=== PATIENT | female | born 1990 | race Caucasian/White ===

== ENCOUNTER 2020-09-16 17:12 | Emergency (ER) | payer MEDICAID, OTHER, SELFPAY ==
[2020-09-16 17:38] VITALS: BP 143/79; PULSE 85; RESP 18; TEMP 37.3; O2SAT 99; BMI 21.9
[2020-09-16 18:12] LABS: MANUAL DIFF FLAG NO
[2020-09-16 18:15] LABS: Glucose Urine UA NEG (NEG); Leukocyte Esterase Urine TRACE (NEG); Nitrite Urine NEG (NEG); Specific Gravity - Urine <= 1.005 (1.005-1.025); UACC Culture Trigger YES; Urine Blood 3+ (NEG); Urine Ketones NEG (NEG); Urine Protein NEG (NEG-TRACE)
[2020-09-16 18:16] LABS: Basophils Percent Auto 0.4 % (0-2); Eosinophils Absolute Auto 0.3 X10*3/uL (0.0-0.4); Eosinophils Percent Auto 3.2 % (0-4); Hematocrit 28.6 % (37-47); Hemoglobin 8.6 g/dl (12.0-16.0); Imm Gran Abs Auto 0.04 X10*3/uL (0.00-0.03); Imm Gran Pct Auto 0.5 % (0.0-0.4); Lymphocytes Absolute Auto 2.5 X10*3/uL (1.2-4.9); Lymphocytes Percent Auto 30.8 % (20-40); Mean Corpuscular HGB Conc 30.1 g/dl (31.0-35.0); Mean Corpuscular Hemoglobin 21.2 pg (27.0-33.0); Mean Corpuscular Volume 70.6 fL (80-98); Mean Platelet Volume 9.9 fL (9.4-12.3); Monocytes Absolute Auto 0.6 X10*3/uL (0.1-1.2); Monocytes Percent Auto 7.4 % (2-11); Neutrophils Absolute Auto 4.7 X10*3/uL (2.0-8.3); Neutrophils Percent Auto 57.7 % (45-73); Platelet Count 457 X10*3/uL (160-400); Red Blood Count 4.05 X10*6/uL (4.20-5.50); Red Cell Distribution Width 14.6 % (11.0-16.0); White Blood Count 8.1 X10*3/uL (4.8-10.8)
[2020-09-16 18:20] LABS: Appearance Urine HAZY; Color Urine PINK
[2020-09-16 18:21] LABS: UPreg QC Valid YES; Urine Pregnancy NEGATIVE (NEGATIVE)
[2020-09-16 18:26] LABS: RBC Urine TNTC /HPF (0); Squamous Epithelial Cell Urine 2+ /LPF
[2020-09-16 18:38] LABS: Anion Gap 11 (12-20); Blood Urea Nitrogen 9 mg/dL (9-16); Carbon Dioxide 24 mmol/L (22-29); Chloride 110 mmol/L (96-108); Creatinine Clr Calc Pharmacy 89.4; Estimated Glomerular Filt Rate > 60; Glucose Random 98 mg/dL (60-115); Sodium 141 mmol/L (135-145)
--- NOTE | 2020-09-16 21:29 | ED.FEMALEGU ---
HPI - Female Genitourinary General Chief complaint: Vaginal Bleeding Stated complaint: abd pain Time Seen by Provider: 09/16/20 21:29 Source: patient Mode of arrival: ambulatory Limitations: no limitations History of Present Illness MD elicited complaint: vaginal bleeding Onset (ago): month(s) (3) Severity: mild Consistency: intermittent Vaginal bleeding: scant Exacerbating factors: none Relieving factors: none Associated symptoms: denies other symptoms Treatment prior to arrival: none Sexual activity: Yes Patient : No Related Data Previous Rx's Medication Instructions Recorded medroxyprogesterone [Provera] 10 mg PO DAILY 9 Days #9 tab 09/16/20 Allergies Allergy/AdvReac Type Severity Reaction Status Date / Time pork derived (porcine) Allergy Rash Verified 09/16/20 17:45 Review of Systems Review of Systems: Constitutional : No Fever, No Chills ENT/Mouth : No sore throat, No Rhinorrhea Eyes: No Eye Pain, No Swelling, No Redness Cardiovascular : No Chest Pain, No SOB Respiratory : No Cough, No Sputum, No Wheezing Gastrointestinal : No Nausea, No Vomiting, No Diarrhea Genitourinary : No Dysuria, No Urinary Frequency, No Hematuria, pos vaginal bleeding Musculoskeletal : No joint pain, No Myalgias, No Joint Swelling Skin : No Skin Lesions, No rash Neuro : No Weakness, No Numbness, No Dizziness, No Headache Psych : No Anxiety/Panic, No Depression All other systems reviewed and are negative [facility] Past Medical History Attestation statement: The following information was validated with the patient. Medical History Anemia Social History Social History (Updated 09/16/20 @ 21:55 by Dasha Pacheco DO) Patient Tobacco Use Status: Never used Tobacco Use of substances other than those prescribed or required for medical reasons: No Advance Directives: No Advance Directives Information Provided: Yes Patient : No Physical Exam Vital Signs: Vital Signs: Last Vital Signs Temp 99.1 F 09/16/20 17:38 Pulse 85 09/16/20 17:38 Resp 18 09/16/20 17:38 BP 143/79 H 09/16/20 17:38 Pulse Ox 99 09/16/20 17:38 Body Mass Index 21.9 Appearance: Alert. Oriented X3. No acute distress. Eyes: Pupils equal, round and reactive to light. ENT: Pharynx normal. Neck: Normal inspection. Neck supple. CVS: Normal heart rate and rhythm. Pulses normal. Respiratory: No respiratory distress. Breath sounds normal. Abdomen: Soft and non-tender. Skin: Skin warm and dry. slightly pale skin color. Normal skin turgor. Extremities: No lower extremity edema. No calf ttp Neuro: Oriented X 3. No motor deficit. No sensory deficit. MDM - Female Genitourinary MDM Narrative Medical decision making narrative: 30 yo female with DUB x 3 months has not seen OB, hemoglobin 8.6 on Fe x 2 days, asymptomatic no CP/SOB no fatigue - no indication for transfusion, came to ED to get US but patient made aware she will need to follow up as outpatient at this time given lack of transvaginal wand and she is not having significant bleeding and can wait for outpatient workup - patient aware, plans to follow up with OB will start on provera Lab Data Result diagrams: 09/16/20 18:01 09/16/20 18:00 Labs: Lab Results 09/16/20 09/16/20 09/16/20 Range/Units 18:00 18:00 18:01 WBC 8.1 (4.8-10.8) X10*3/uL RBC 4.05 L (4.20-5.50) X10*6/uL Hgb 8.6 L (12.0-16.0) g/dl Hct 28.6 L (37-47) % MCV 70.6 L (80-98) fL MCH 21.2 L (27.0-33.0) pg MCHC 30.1 L (31.0-35.0) g/dl RDW 14.6 (11.0-16.0) % Plt Count 457 H (160-400) X10*3/uL MPV 9.9 (9.4-12.3) fL Immature Gran % (Auto) 0.5 H (0.0-0.4) % Neut % (Auto) 57.7 (45-73) % Lymph % (Auto) 30.8 (20-40) % [place] % (Auto) 7.4 (2-11) % Eos % (Auto) 3.2 (0-4) % Baso % (Auto) 0.4 (0-2) % Lymph # (Auto) 2.5 (1.2-4.9) X10*3/uL [place] # (Auto) 0.6 (0.1-1.2) X10*3/uL Eos # (Auto) 0.3 (0.0-0.4) X10*3/uL Baso # (Auto) 0.0 (0.0-0.2) X10*3/uL Abs Immat Gran (auto) 0.04 H (0.00-0.03) X10*3/uL Absolute Neuts (auto) 4.7 (2.0-8.3) X10*3/uL Absolute Nucleated RBC 0.000 (0.0-0.012) X10*3/uL Nucleated RBC % (auto) 0.0 (0.0-0.2) /100WBC Hold Purple Top SEE NOTE Sodium 141 (135-145) mmol/L Potassium 4.0 (3.3-5.1) mmol/L Chloride 110 H (96-108) mmol/L Carbon Dioxide 24 (22-29) mmol/L Anion Gap 11 L (12-20) BUN 9 (9-16) mg/dL Creatinine 0.82 (0.5-1.4) mg/dL Estim Creat Clear Calc 89.4 Estimated GFR > 60 Random Glucose 98 (60-115) mg/dL Calcium 9.0 (8.4-10.2) mg/dL Urine Color Urine Appearance Urine pH (5.0-8.0) Ur Specific [place] (1.005-1.025) Urine Protein (NEG-TRACE) MG/DL Urine Glucose (UA) (NEG) MG/DL Urine Ketones (NEG) MG/DL Urine Blood (NEG) Urine Nitrite (NEG) Ur Leukocyte Esterase (NEG) Urine RBC (0) /HPF Urine WBC (0-4) /HPF Ur Squamous Epith Cells /LPF Urine Bacteria /LPF Urine Test (NEGATIVE) 09/16/20 09/16/20 Range/Units 18:04 18:04 WBC (4.8-10.8) X10*3/uL RBC (4.20-5.50) X10*6/uL Hgb (12.0-16.0) g/dl Hct (37-47) % MCV (80-98) fL MCH (27.0-33.0) pg MCHC (31.0-35.0) g/dl RDW (11.0-16.0) % Plt Count (160-400) X10*3/uL MPV (9.4-12.3) fL Immature Gran % (Auto) (0.0-0.4) % Neut % (Auto) (45-73) % Lymph % (Auto) (20-40) % [place] % (Auto) (2-11) % Eos % (Auto) (0-4) % Baso % (Auto) (0-2) % Lymph # (Auto) (1.2-4.9) X10*3/uL [place] # (Auto) (0.1-1.2) X10*3/uL Eos # (Auto) (0.0-0.4) X10*3/uL Baso # (Auto) (0.0-0.2) X10*3/uL Abs Immat Gran (auto) (0.00-0.03) X10*3/uL Absolute Neuts (auto) (2.0-8.3) X10*3/uL Absolute Nucleated RBC (0.0-0.012) X10*3/uL Nucleated RBC % (auto) (0.0-0.2) /100WBC Hold Purple Top Sodium (135-145) mmol/L Potassium (3.3-5.1) mmol/L Chloride (96-108) mmol/L Carbon Dioxide (22-29) mmol/L Anion Gap (12-20) BUN (9-16) mg/dL Creatinine (0.5-1.4) mg/dL Estim Creat Clear Calc Estimated GFR Random Glucose (60-115) mg/dL Calcium (8.4-10.2) mg/dL Urine Color PINK Urine Appearance HAZY Urine pH 6.0 (5.0-8.0) Ur Specific [place] <= 1.005 (1.005-1.025) Urine Protein NEG (NEG-TRACE) MG/DL Urine Glucose (UA) NEG (NEG) MG/DL Urine Ketones NEG (NEG) MG/DL Urine Blood 3+ H (NEG) Urine Nitrite NEG (NEG) Ur Leukocyte Esterase TRACE H (NEG) Urine RBC TNTC H (0) /HPF Urine WBC 1-4 (0-4) /HPF Ur Squamous Epith Cells 2+ /LPF Urine Bacteria NONE /LPF Urine Test NEGATIVE (NEGATIVE) Discharge Plan Discharge Clinical Impression: Vaginal bleeding Anemia Qualifiers: Anemia type: iron deficiency Iron deficiency anemia type: chronic blood loss Qualified Code(s): D50.0 - Iron deficiency anemia secondary to blood loss (chronic) Patient Disposition: Home, Self-Care Instructions: Dysfunctional Uterine Bleeding (ED), Anemia (ED) Additional Instructions: return to ED for any worsening symptoms or concerns TAKE iron Prescriptions: New medroxyprogesterone [Provera] 10 mg tablet 10 mg PO DAILY 9 Days Qty: 9 RF: 0 Referrals: Jhony Lopez MD [Physician] - 5 days (call tomorrow for appointment) Print Language: Syriac
[2020-09-16 21:56] VITALS: BP 106/66; PULSE 65; RESP 16; TEMP 36.8; O2SAT 100
[2020-09-16] MEDS: medroxyPROGESTERone Acetate 5 MG TABLET 10 MG PO (22:17)
== END 2020-09-16 22:21 | disposition home or self-care (01) ==
PROVIDERS: Emergency Provider Emergency Medicine
DX: N93.9 Abnormal uterine and vaginal bleeding, unspecified (principal); D50.0 Iron deficiency anemia secondary to blood loss (chronic)
CPT/HCPCS: 36415; 80048; 81001; 81003; 81025; 85025; 87086; 99284

== ENCOUNTER 2020-09-17 16:42 | Emergency (ER) | payer MEDICAID, OTHER, SELFPAY ==
--- NOTE | ~2020-09-17 | US_ITS ---
EXAMINATION: US PELVIC, COMPLETE CLINICAL INFORMATION: Vaginal bleeding for 3 months. Negative test. COMPARISON: None. TECHNIQUE: Transabdominal and transvaginal imaging was performed. FINDINGS: The uterus is anteverted of normal size and echogenicity measuring 7.8 x 4.2 x 6.8 cm. The endometrium is distorted by a central mass distorting the endometrium, most likely a submucosal fibroid measuring 2.9 x 3.2 x 3.2 cm. Within a distorted endometrial canal, a hypervascular area is seen, separate but adjacent to the fibroid. Both ovaries are of normal size and echogenicity. The right measures 2.9 x 2.0 x 2.0 cm for a volume of 6.1 mL. The left measures 3.0 x 2.0 x 1.9 cm for a volume of 6 mL. There is no pelvic free fluid. US/US pelvic and transvaginal IMPRESSION: 1. There is a hypervascular region within the distorted endometrium of uncertain radiology. Clinical correlation for any prior instrumentation or is is requested. Gynecological consultation with consideration for hysteroscopic evaluation and possible biopsy is warranted. 2. Submucosal fibroid distorts the endometrium which is not well seen.
--- NOTE | 2020-09-17 16:47 | ED_ITS ---
HPI - Female Genitourinary General Chief complaint: Vaginal Bleeding Stated complaint: ultrasound Time Seen by Provider: 09/17/20 16:43 Source: patient and consular officer Mode of arrival: ambulatory Limitations: no limitations History of Present Illness HPI Narrative: seen yesterday for anemia and vaginal bleeding could not get US came back to ED just to get US for her vaginal bleeding that she has not had sig workup for and has not seen OB MD elicited complaint: vaginal bleeding Onset (ago): month(s) (3) Severity: mild Quality of pain: dull Vaginal discharge: none Vaginal bleeding: scant Exacerbating factors: none Relieving factors: none Associated symptoms: denies other symptoms Treatment prior to arrival: other (put on provera yesterday and has been on Fe) Related Data Previous Rx's Medication Instructions Recorded medroxyprogesterone [Provera] 10 mg PO DAILY 9 Days #9 tab 09/16/20 Allergies Allergy/AdvReac Type Severity Reaction Status Date / Time pork derived (porcine) Allergy Rash Verified 09/16/20 17:45 Review of Systems Review of Systems: Constitutional : No Weight loss, No Fever, No Chills, No Fatigue, No Malaise ENT/Mouth : No sore throat, No Rhinorrhea Eyes: No Eye Pain, No Swelling, No Redness Cardiovascular : No Chest Pain, No SOB, No Dyspnea on Exertion, No Orthopnea, No Edema, No Palpitations Respiratory : No Cough, No Sputum, No Wheezing Gastrointestinal : No Nausea, No Vomiting, No Diarrhea, No Constipation, No abdominal Pain, No Hematochezia, No Melena Genitourinary : No Dysuria, No Urinary Frequency, No Hematuria, pos vaginal bleeding Musculoskeletal : No joint pain, No Myalgias, No Joint Swelling Skin : No Skin Lesions, No rash Neuro : No Weakness, No Numbness, No Dizziness, No Headache Psych : No Anxiety/Panic, No Depression Heme/Lymph: No Bruising, No Bleeding,No Lymphadenopathy Endocrine : No Polyuria, No Polydipsia All other systems reviewed and are negative [facility] Past Medical History Attestation statement: The following information was validated with the patient. Medical History Anemia Social History Social History Patient Tobacco Use Status: Never used Tobacco Patient : No Physical Exam Vital Signs: Vital Signs: Last Vital Signs Temp 98.1 F 09/17/20 17:08 Pulse 78 09/17/20 17:08 Resp 16 09/17/20 17:08 BP 128/76 09/17/20 17:08 Pulse Ox 96 09/17/20 17:08 Body Mass Index 25.4 Appearance: Alert. Oriented X3. No acute distress. Eyes: Pupils equal, round and reactive to light. ENT: Pharynx normal. Neck: Normal inspection. Neck supple. CVS: Normal heart rate and rhythm. Pulses normal. Respiratory: No respiratory distress. Breath sounds normal. Abdomen: Soft and nontender. Skin: Skin warm and dry. Normal skin color. Normal skin turgor. Extremities: No lower extremity edema. No calf ttp Neuro: Oriented X 3. No motor deficit. No sensory deficit. Course Course Course Narrative: will obtain quant and if negative refer to OBGYN quant negative MDM - Female Genitourinary MDM Narrative Medical decision making narrative: 30 yo female with no new complaints back in our ED today as she could not have US done yesterday during her stay, Vag bleeding controlled today VS stable, US ordered to evaluate for mass/fibroid Lab Data Labs: Lab Results 09/17/20 Range/Units 18:32 Beta HCG, Quant < 2 mIU/mL Discharge Plan Discharge Clinical Impression: Dysfunctional uterine bleeding, Fibroid Patient Disposition: Home, Self-Care Instructions: Dysfunctional Uterine Bleeding (ED) Additional Instructions: return to ED for any worsening symptoms or concerns US: 1. There is a hypervascular region within the distorted endometrium of uncertain radiology. Clinical correlation for any prior instrumentation or is is requested. Gynecological consultation with consideration for hysteroscopic evaluation and possible biopsy is warranted. 2. Submucosal fibroid distorts the endometrium which is not well seen. Prescriptions: No Action medroxyprogesterone [Provera] 10 mg tablet 10 mg PO DAILY 9 Days Qty: 9 RF: 0 Print Language: Ukrainian
[2020-09-17 17:08] VITALS: BP 128/76; PULSE 78; RESP 16; TEMP 36.7; O2SAT 96; BMI 25.4
[2020-09-17 19:08] LABS: HCG Quantitative < 2 mIU/mL
== END 2020-09-17 19:45 | disposition home or self-care (01) ==
LOC: HO.ED 19:17
PROVIDERS: Emergency Provider Emergency Medicine
DX: N93.8 Other specified abnormal uterine and vaginal bleeding (principal); D64.9 Anemia, unspecified; Z79.899 Other long term (current) drug therapy
CPT/HCPCS: 36415; 76830; 76856; 84702; 99283

== ENCOUNTER 2020-10-20 08:07 | Outpatient (REF) | payer MEDICAID, OTHER, SELFPAY ==
[2020-10-20 09:51] LABS: Hematocrit 36.9 % (37-47); Hemoglobin 11.6 g/dl (12.0-16.0); Mean Corpuscular HGB Conc 31.4 g/dl (31.0-35.0); Mean Corpuscular Hemoglobin 24.5 pg (27.0-33.0); Mean Corpuscular Volume 77.8 fL (80-98); Mean Platelet Volume 10.3 fL (9.4-12.3); Platelet Count 319 X10*3/uL (160-400); Red Blood Count 4.74 X10*6/uL (4.20-5.50); Red Cell Distribution Width 20.6 % (11.0-16.0); White Blood Count 5.7 X10*3/uL (4.8-10.8)
[2020-10-20 12:13] LABS: HCG Quantitative < 2 mIU/mL; TSH reflex Free T4 2.98 uIU/mL (0.32-4.0)
[2020-10-21 05:51] LABS: CT PCR NOT DETECTED (Not Detect.); NG PCR NOT DETECTED (Not Detect.)
[2020-10-22 19:36] LABS: HPV mRNA E6/E7 rflx Not Detected (Not Detected)
== END 2020-10-20 08:08 | disposition home or self-care (01) ==
LOC: HO.LAB 08:07
PROVIDERS: Visit Provider Obstetrics & Gynecology
DX: Z01.411 Encounter for gynecological examination (general) (routine) with abnormal findings (principal); Z11.51 Encounter for screening for human papillomavirus (HPV); Z11.3 Encounter for screening for infections with a predominantly sexual mode of transmission; N93.9 Abnormal uterine and vaginal bleeding, unspecified; R93.5 Abnormal findings on diagnostic imaging of other abdominal regions, including retroperitoneum; D64.9 Anemia, unspecified
CPT/HCPCS: 36415; 84443; 84702; 85027; 87491; 87591; 87624; 88142; 99202

== ENCOUNTER 2020-10-29 11:45 | Day surgery (SDC) | payer MEDICAID, OTHER, SELFPAY ==
[2020-10-25 09:20] VITALS: BMI 27.3
--- NOTE | 2020-10-28 09:00 | HO.ANESPROP2 ---
Documented by User: Evelia Carranza NP 10/28/20 09:01 HPI - Anesthesia Eval Consult details Narrative: 30yo F for ?D&C Hysteroscopy, Poss Polypectomy, Poss myomectomy [facility] Active Problems Active Problems: All Active Problems (Updated 10/20/20 @ 10:48 by Alysa George MA) Abnormal ultrasound of endometrium (Acute) Anemia (Acute) Abnormal uterine bleeding (AUB) (Acute) Past Medical History Medical History Anemia Social History Social History Patient Tobacco Use Status: Never used Tobacco Use of substances other than those prescribed or required for medical reasons: No Have you been hit, kicked, punched, or otherwise hurt by someone within the past year? If so, by whom?: No Are you DNR?: No Advance Directives: No Advance Directives Information Provided: Yes Meds Allergies Allergy/AdvReac Type Severity Reaction Status Date / Time pork derived (porcine) Allergy Rash Verified 10/20/20 08:20 Exam Exam Date and Time: October 28, 2020 0900 Height,Weight and Vital Signs: Height 5 ft 1 in Weight 65.771 kg Pertinent Lab Results Pertinent Lab Results: Laboratory Tests 09/16/20 10/20/20 18:00 09:28 WBC 5.7 Hgb 11.6 L D Hct 36.9 L D Plt Count 319 D Sodium 141 Potassium 4.0 Chloride 110 H Carbon Dioxide 24 BUN 9 Creatinine 0.82 Assessment and Plan Assessment Anesthesia Assessment: Chart Reviewed Documented by User: Brinda Eason MD 10/29/20 13:21 [facility] Past Medical History Medical History Anemia Family History Family history of problems with anesthesia: No Surgical History History of Problems with Anesthesia: No (No previous surgeries) Social History Social History Patient Tobacco Use Status: Never used Tobacco Use of substances other than those prescribed or required for medical reasons: No Have you been hit, kicked, punched, or otherwise hurt by someone within the past year? If so, by whom?: No Are you DNR?: No Advance Directives: No Advance Directives Information Provided: Yes Meds Allergies Allergy/AdvReac Type Severity Reaction Status Date / Time pork derived (porcine) Allergy Rash Verified 10/20/20 08:20 Exam Height,Weight and Vital Signs: Height 5 ft 1 in Weight 65.771 kg Vital Signs Temp Pulse Resp BP Pulse Ox 10/29/20 12:03 97.9 F 76 18 125/75 99 Airway Mallampati Class: II TM Dist: >3cm Neck ROM: Full Heart: RRR Lungs: CTAB Assessment and Plan Assessment Anesthesia Assessment: Anesthesia Plan Discussed Final Anesthetic Review Family History of Problems with Anesthesia: No History of Problems with Anesthesia: No (No previous surgeries) NPO: Yes ASA Class: II Final Preanesthetic Review: No Changes in Pt Med Stat, Meds/Allgs Chart Reviewed, Consent Obtained/Reviewed and Anes Risks/Benef Reviewed Patient Risk: Low Procedure Risk: Low Assessment/Block/Sedation in SS: Assess/Block/Sedation-SS Anesthetic Plan Anesthetic Plan: GA and MAC: Disposition: Standard PACU
[2020-10-29 12:03] VITALS: BP 125/75; PULSE 76; RESP 18; TEMP 36.6; O2SAT 99
[2020-10-29 12:25] LABS: UPreg QC Valid YES; Urine Pregnancy NEGATIVE (NEGATIVE)
--- NOTE | 2020-10-29 12:56 | MHC.SHP ---
Pre-Procedural Eval Section A Date of Service: 10/29/20 The patient is an INPATIENT: No Changes since office visit: No Cold of Flu in the past 2 weeks, No New Medical Problems, No Changes in Medication and No Patient answered all questions The History & Physical has been completed within 30 days and I have reviewed it.: Yes Section B Chief Complaint: abnormal findings Allergies: Allergies Allergy/AdvReac Type Severity Reaction Status Date / Time pork derived (porcine) Allergy Rash Verified 10/20/20 08:20 Plan Diagnosis/Plan: Unchanged I have reviewed the history and physical and performed a pertinent physical examination on my patient. No changes have occurred unless specified.
--- NOTE | 2020-10-29 14:02 | P.BOP_ITS ---
Brief Operative Note Date of Service: 10/29/20 Pre-op diagnosis: Abnormal uterine bleeding, abnormal endometrium by ultrasound Post-op diagnosis: same (Submucosal myoma) Procedure: Hysteroscopy D&C, myomectomy Surgeon: Jhony Lopez MD Anesthesia: MAC Was an Electronic Publications Specialist used for this Procedure?: No Estimated blood loss (mL): 0 Pathology: other (Endometrial Scrapping. Submucosal myoma) Condition: stable Disposition: PACU
--- NOTE | 2020-10-29 14:02 | W.PM.OPN ---
Operative Note Operative Note Date of Service: 10/29/20 Narrative: Preop Diagnosis: AUB with abnormal endometrium by ultrasound Operation: Diagnostic Hysteroscopy, Dilataion & Curettage and myomectomy Post Op Diagnosis: Submucosal myoma QBL: Minimal Anesthesia: MAC Surgeon: Jhony Lopez MD Senior Brand Manager: None Complication: None Pathology: Endometrial Scrapings, submucosal myoma Procedure: The patient was put in the dorsal lithotomy position, scrubbed, and draped in the usual manner. A sterile speculum was inserted in the patient's vagina. The anterior lip of the cervix was grasped with a single tooth tenaculum. The cervix was dilated up to 5 mm, then the scope was inserted in the patient's uterus. Inspection revealed submucosal myoma. The Myosure Reach device was used; it was introduced through the operative channel and myomectomy was done with no complications. At the end of the procedure, all instruments were taken out of the patient uterine and vaginal cavity. The single tooth tenaculum was removed and homeostasis was assured using pressure,. The patient tolerated the procedure well and was transferred to the PACU in a stable condition.
[2020-10-29 14:08] VITALS: BP 116/69; PULSE 64; RESP 16; TEMP 36.2; O2SAT 100
[2020-10-29 14:18] VITALS: BP 105/70; PULSE 59; RESP 16; O2SAT 100
[2020-10-29 14:23] VITALS: BP 119/70; PULSE 65; RESP 17; TEMP 36.2; O2SAT 100
[2020-10-29 14:38] VITALS: BP 109/68; PULSE 60; RESP 18; O2SAT 100
[2020-10-29] MEDS: Acetaminophen 325 MG TABLET 650 MG PO (14:39)
--- NOTE | 2020-10-29 15:41 | PC.NURSE ---
Discharge instructions provided with assistance [place] [facility] [place]
== END 2020-10-29 15:30 | disposition home or self-care (01) ==
PROVIDERS: Nurse Practitioner; Visit Provider Obstetrics & Gynecology
PROC: 0UDB8ZZ Extraction of Endometrium, Via Natural or Artificial Opening Endoscopic (ICD-10-PCS; CPT 58558; principal; 2020-10-29 13:00)
DX: N93.9 Abnormal uterine and vaginal bleeding, unspecified (principal); D25.0 Submucous leiomyoma of uterus; D64.9 Anemia, unspecified
CPT/HCPCS: 58561; 81025; 88305; J1100; J1885; J2250; J2405; J3010

== ENCOUNTER 2020-11-08 15:06 | Emergency (ER) | payer MEDICAID, OTHER, SELFPAY ==
--- NOTE | ~2020-11-08 | US_ITS ---
EXAMINATION: ULTRASOUND PELVIC, COMPLETE CLINICAL INFORMATION: heavy vaginal bleeding s/p uterine surgery, Myomectomy 10/29/2020 COMPARISON: Pelvic ultrasound September 17, 2020 TECHNIQUE: Transabdominal imaging only. Color Doppler exam was utilized. LMP: Uncertain FINDINGS: UTERUS: There is a fundal uterine fibroid which is likely submucosal in location. Current measurement 3 x 2.7 x 3.4 cm. Previous measurement 2.9 x 3.2 x 3.2 cm. The uterus measures 8.1 x 4.5 x 5.9 cm. Total uterine volume 112.6 mL. Endometrial stripe not well delineated. ADNEXA: Ovarian vascularity:Doppler demonstrates both arterial and venous vascular flow in the right and left ovary. No evidence of ovarian torsion. Right Ovary: 3.4 x 2.4 x 2.8 cm. Volume 8.6 mL Left Ovary: 3 x 1.9 x 1.5 cm. Volume 4.5 mL. Cul-de-sac: No Fluid US/US pelvic complete IMPRESSION: No change in the size of the fundal fibroid since prior ultrasound exam of August 18, 2020.
[2020-11-08 15:52] VITALS: BP 121/87; PULSE 85; RESP 16; TEMP 36.6; O2SAT 98; BMI 27.7
--- NOTE | 2020-11-08 16:31 | ED.FEMALEGU ---
HPI - Female Genitourinary General Chief complaint: Vaginal Bleeding Stated complaint: VAGINAL BLEEDING Time Seen by Provider: 11/08/20 15:52 Related Data Home Medications Medication Instructions Recorded Confirmed iron DAILY 10/29/20 Previous Rx's Medication Instructions Recorded medroxyprogesterone 10 mg tablet 10 mg PO DAILY 9 Days #9 tab 09/16/20 (Provera) cefuroxime axetil 250 mg tablet 250 mg PO Q12H 7 Days #14 tab 11/08/20 Allergies Allergy/AdvReac Type Severity Reaction Status Date / Time pork derived (porcine) Allergy Rash Verified 10/20/20 08:20 [facility] Past Medical History Medical History Anemia Social History Social History Patient Tobacco Use Status: Never used Tobacco Physical Exam Vital Signs: Vital Signs: Last Vital Signs Temp 99.1 F 11/08/20 23:37 Pulse 62 11/08/20 23:37 Resp 16 11/08/20 23:37 BP 111/64 11/08/20 23:37 Pulse Ox 99 11/08/20 23:37 Body Mass Index 27.7 Course Course Course Narrative: 16pm - 31-year-old female presenting to the ED with complaints of heavy vaginal bleeding for the past 3 days worse today with associated clots. She reports she is using approximately 5-6 feminine pad daily. She had Diagnostic Hysteroscopy, Dilataion & Curettage and myomectomy on 10/29/[address] Lopez. She reports she did not have any vaginal bleeding until a few days ago. She reports associated suprapubic abdominal pain. Denies any other symptoms complaints or concerns at this time. Labs, UA, U hCG and ultrasound ordered at this time patient sent back to the awaiting room for further evaluation treatment into the main ED. MDM - Female Genitourinary Lab Data Result diagrams: 11/08/20 20:13 11/08/20 20:13 Labs: Lab Results 11/08/20 11/08/20 11/08/20 Range/Units 16:31 20:13 20:13 WBC 11.1 H (4.8-10.8) X10*3/uL RBC 4.81 (4.20-5.50) X10*6/uL Hgb 11.9 L (12.0-16.0) g/dl Hct 37.1 (37-47) % MCV 77.1 L (80-98) fL MCH 24.7 L (27.0-33.0) pg MCHC 32.1 (31.0-35.0) g/dl RDW 17.2 H (11.0-16.0) % Plt Count 327 (160-400) X10*3/uL MPV 10.3 (9.4-12.3) fL Immature Gran % (Auto) 0.4 (0.0-0.4) % Neut % (Auto) 67.8 (45-73) % Lymph % (Auto) 20.6 (20-40) % [place] % (Auto) 8.4 (2-11) % Eos % (Auto) 2.4 (0-4) % Baso % (Auto) 0.4 (0-2) % Lymph # (Auto) 2.3 (1.2-4.9) X10*3/uL [place] # (Auto) 0.9 (0.1-1.2) X10*3/uL Eos # (Auto) 0.3 (0.0-0.4) X10*3/uL Baso # (Auto) 0.0 (0.0-0.2) X10*3/uL Abs Immat Gran (auto) 0.04 H (0.00-0.03) X10*3/uL Absolute Neuts (auto) 7.5 (2.0-8.3) X10*3/uL Absolute Nucleated RBC 0.000 (0.0-0.012) X10*3/uL Nucleated RBC % (auto) 0.0 (0.0-0.2) /100WBC PT 10.8 (9.9-13.0) SEC INR 1.0 (0.9-1.1) Sodium (135-145) mmol/L Potassium (3.3-5.1) mmol/L Chloride (96-108) mmol/L Carbon Dioxide (22-29) mmol/L Anion Gap (12-20) BUN (9-16) mg/dL Creatinine (0.5-1.4) mg/dL Estim Creat Clear Calc Estimated GFR Random Glucose (60-115) mg/dL Calcium (8.4-10.2) mg/dL Magnesium (1.6-2.6) mg/dL Total Bilirubin (0.0-1.0) mg/dL AST (5-31) U/L ALT (0-31) U/L Alkaline Phosphatase (39-117) U/L Total Protein (6.5-8.0) g/dL Albumin (3.5-5.0) g/dL Beta HCG, Quant mIU/mL Urine Color RED Urine Appearance HAZY Urine pH 5.0 (5.0-8.0) Ur Specific [place] 1.015 (1.005-1.025) Urine Protein 2+ H (NEG-TRACE) MG/DL Urine Glucose (UA) NEG (NEG) MG/DL Urine Ketones 5 (NEG) MG/DL Urine Blood 3+ H (NEG) Urine Nitrite POS H (NEG) Ur Leukocyte Esterase 2+ H (NEG) Urine RBC TNTC H (0) /HPF Urine WBC 5-9 H (0-4) /HPF Ur Squamous Epith Cells TRACE /LPF Urine Bacteria TRACE /LPF 11/08/20 11/08/20 Range/Units 20:13 20:13 WBC (4.8-10.8) X10*3/uL RBC (4.20-5.50) X10*6/uL Hgb (12.0-16.0) g/dl Hct (37-47) % MCV (80-98) fL MCH (27.0-33.0) pg MCHC (31.0-35.0) g/dl RDW (11.0-16.0) % Plt Count (160-400) X10*3/uL MPV (9.4-12.3) fL Immature Gran % (Auto) (0.0-0.4) % Neut % (Auto) (45-73) % Lymph % (Auto) (20-40) % [place] % (Auto) (2-11) % Eos % (Auto) (0-4) % Baso % (Auto) (0-2) % Lymph # (Auto) (1.2-4.9) X10*3/uL [place] # (Auto) (0.1-1.2) X10*3/uL Eos # (Auto) (0.0-0.4) X10*3/uL Baso # (Auto) (0.0-0.2) X10*3/uL Abs Immat Gran (auto) (0.00-0.03) X10*3/uL Absolute Neuts (auto) (2.0-8.3) X10*3/uL Absolute Nucleated RBC (0.0-0.012) X10*3/uL Nucleated RBC % (auto) (0.0-0.2) /100WBC PT (9.9-13.0) SEC INR (0.9-1.1) Sodium 140 (135-145) mmol/L Potassium 3.7 (3.3-5.1) mmol/L Chloride 110 H (96-108) mmol/L Carbon Dioxide 24 (22-29) mmol/L Anion Gap 10 L (12-20) BUN 11 (9-16) mg/dL Creatinine 0.66 (0.5-1.4) mg/dL Estim Creat Clear Calc 107.8 Estimated GFR > 60 Random Glucose 90 (60-115) mg/dL Calcium 8.9 (8.4-10.2) mg/dL Magnesium 2.0 (1.6-2.6) mg/dL Total Bilirubin < 0.2 (0.0-1.0) mg/dL AST 15 (5-31) U/L ALT 15 (0-31) U/L Alkaline Phosphatase 65 (39-117) U/L Total Protein 6.8 (6.5-8.0) g/dL Albumin 4.1 (3.5-5.0) g/dL Beta HCG, Quant < 2 mIU/mL Urine Color Urine Appearance Urine pH (5.0-8.0) Ur Specific [place] (1.005-1.025) Urine Protein (NEG-TRACE) MG/DL Urine Glucose (UA) (NEG) MG/DL Urine Ketones (NEG) MG/DL Urine Blood (NEG) Urine Nitrite (NEG) Ur Leukocyte Esterase (NEG) Urine RBC (0) /HPF Urine WBC (0-4) /HPF Ur Squamous Epith Cells /LPF Urine Bacteria /LPF Discharge Plan Discharge Clinical Impression: Vaginal bleeding, UTI (urinary tract infection) Patient Disposition: Home, Self-Care Instructions: Dysfunctional Uterine Bleeding (ED), Urinary Tract Infection in Men (ED) Additional Instructions: Wilson an?lisis de gray volvi? a la normalidad. Tus signos vitales estaban estables. Wilson orina muestra UTI. La ecograf?a p?lvica todav?a muestra fibromas. Habl? del lj con el Dr. Lopez de OBGYN y ?l le recomend? que le den el jerad y le sarah un seguimiento en wilson consultorio ma?pradeep por la ma?pradeep. regrese al servicio de urgencias inmediatamente si empeora el sangrado vaginal, dolor abdominal, n?useas, v?mitos, fiebre, escalofr?os, dolor en el costado o cualquier otro s?ntoma preocupante. Prescriptions: New cefuroxime axetil 250 mg tablet 250 mg PO Q12H 7 Days Qty: 14 RF: 0 No Action medroxyprogesterone [Provera] 10 mg tablet 10 mg PO DAILY 9 Days Qty: 9 RF: 0 iron DAILY RF: 0 Referrals: Jhony Lopez MD [Physician] - 2 days (Vaginal bleeding pmh of fibroids. Recent myomectomy) Stand Alone Forms: Work/School Release Interventions: ED Discharge Assessment Last Done: 11/08/20 23:54 Discharge Date/Time: 11/08/20 23:54 Print Language: Hungarian
[2020-11-08 16:49] LABS: Appearance Urine HAZY; Color Urine RED; Glucose Urine UA NEG (NEG); Leukocyte Esterase Urine 2+ (NEG); Nitrite Urine POS (NEG); Specific Gravity - Urine 1.015 (1.005-1.025); UACC Culture Trigger YES; Urine Blood 3+ (NEG); Urine Ketones 5 MG/DL (NEG); Urine Protein 2+ MG/DL (NEG-TRACE)
[2020-11-08 16:58] LABS: Bacteria Urine TRACE /LPF; RBC Urine TNTC /HPF (0); Squamous Epithelial Cell Urine TRACE /LPF
[2020-11-08 19:29] VITALS: BP 117/67; PULSE 80; RESP 16; O2SAT 98
[2020-11-08 20:19] LABS: MANUAL DIFF FLAG NO
[2020-11-08 20:27] LABS: Basophils Percent Auto 0.4 % (0-2); Eosinophils Absolute Auto 0.3 X10*3/uL (0.0-0.4); Eosinophils Percent Auto 2.4 % (0-4); Hematocrit 37.1 % (37-47); Hemoglobin 11.9 g/dl (12.0-16.0); Imm Gran Abs Auto 0.04 X10*3/uL (0.00-0.03); Imm Gran Pct Auto 0.4 % (0.0-0.4); Lymphocytes Absolute Auto 2.3 X10*3/uL (1.2-4.9); Lymphocytes Percent Auto 20.6 % (20-40); Mean Corpuscular HGB Conc 32.1 g/dl (31.0-35.0); Mean Corpuscular Hemoglobin 24.7 pg (27.0-33.0); Mean Corpuscular Volume 77.1 fL (80-98); Mean Platelet Volume 10.3 fL (9.4-12.3); Monocytes Absolute Auto 0.9 X10*3/uL (0.1-1.2); Monocytes Percent Auto 8.4 % (2-11); Neutrophils Absolute Auto 7.5 X10*3/uL (2.0-8.3); Neutrophils Percent Auto 67.8 % (45-73); Platelet Count 327 X10*3/uL (160-400); Red Blood Count 4.81 X10*6/uL (4.20-5.50); Red Cell Distribution Width 17.2 % (11.0-16.0); White Blood Count 11.1 X10*3/uL (4.8-10.8)
[2020-11-08 20:32] LABS: Prothrombin Time 10.8 SEC (9.9-13.0)
[2020-11-08 20:43] LABS: Alanine Aminotransferase 15 U/L (0-31); Albumin Level 4.1 g/dL (3.5-5.0); Alkaline Phosphatase 65 U/L (39-117); Anion Gap 10 (12-20); Aspartate Amino Transferase 15 U/L (5-31); Bilirubin Total < 0.2 mg/dL (0.0-1.0); Blood Urea Nitrogen 11 mg/dL (9-16); Calcium 8.9 mg/dL (8.4-10.2); Carbon Dioxide 24 mmol/L (22-29); Chloride 110 mmol/L (96-108); Creatinine Clr Calc Pharmacy 107.8; Estimated Glomerular Filt Rate > 60; Glucose Random 90 mg/dL (60-115); Potassium 3.7 mmol/L (3.3-5.1); Sodium 140 mmol/L (135-145); Total Protein 6.8 g/dL (6.5-8.0)
[2020-11-08 20:44] LABS: HCG Quantitative < 2 mIU/mL
--- NOTE | 2020-11-08 23:06 | ED.GENADULT ---
HPI - General Adult General Chief complaint: Vaginal Bleeding Stated complaint: VAGINAL BLEEDING Time Seen by Provider: 11/08/20 15:52 Source: patient Mode of arrival: ambulatory Limitations: no limitations History of Present Illness HPI narrative: Patient presents to ED for 1 week of vaginal bleeding with blood clots. Patient has past medical history of fibroids. Patient had myomectomy on the 29 of October and since last Sunday started having vaginal bleeding with blood clots. Patient states 5 pads per day. Patient denies any tiredness, weakness, chest pain, shortness of breath. Denies any severe abdominal pain or cramping. Related Data Home Medications Medication Instructions Recorded Confirmed iron DAILY 10/29/20 Previous Rx's Medication Instructions Recorded medroxyprogesterone 10 mg tablet 10 mg PO DAILY 9 Days #9 tab 09/16/20 (Provera) cefuroxime axetil 250 mg tablet 250 mg PO Q12H 7 Days #14 tab 11/08/20 Allergies Allergy/AdvReac Type Severity Reaction Status Date / Time pork derived (porcine) Allergy Rash Verified 10/20/20 08:20 Review of Systems Review of Systems: Yes all other systems are reviewed and are negative Constitutional: Constitutional: Reports as per HPI and Reports no additional constitutional complaints Eyes: Eyes: Reports as per HPI and Reports no additional eye complaints ENT: Reports system reviewed and no additional complaints, except as documented and Reports as per HPI Cardiovascular: Cardiovascular: Reports as per HPI and Reports no additional cardiovascular complaints Respiratory: Respiratory: Reports as per HPI and Reports no additional respiratory complaints Gastrointestinal: Gastrointestinal: Reports as per HPI and Reports no additional gastrointestinal complaints Genitourinary: Genitourinary: Reports no additional female genitourinary complaints, Reports as per HPI and Reports abnormal vaginal bleeding Comments: Vaginal bleeding Musculoskeletal: Musculoskeletal: Reports no additional musculoskeletal complaints and Reports as per HPI Neurologic: Reports system reviewed and no additional complaints, except as documented and Reports as per HPI Psychiatric: Psychiatric: Reports no additional psychiatric complaints and Reports as per HPI PMFSH Past Medical History Medical History Anemia Social History Social History Patient Tobacco Use Status: Never used Tobacco Advance Directives: No Advance Directives Information Provided: Yes Physical Exam Vital Signs: Vital Signs: Last Vital Signs Temp 99.1 F 11/08/20 23:37 Pulse 62 11/08/20 23:37 Resp 16 11/08/20 23:37 BP 111/64 11/08/20 23:37 Pulse Ox 99 11/08/20 23:37 Body Mass Index 27.7 Const: General: cooperative, healthy appearing, comfortable, no acute distress, well developed, alert, awake and Physically active Orientation/consciousness: patient oriented x3 HENMT: Head: Yes normal to inspection, Yes No palpable skull fracture present, Yes normocephalic, Yes atraumatic and No abrasion Eyes: General: appearance normal, both eyes and all related structures Neck: Neck: Yes normal visual inspection, Yes full ROM, Yes no lymphadenopathy, Yes no meningeal signs, Yes trachea midline, Yes supple and No tender Chest: Chest palpation & inspection: normal inspection of the chest and normal palpation of entire chest wall Resp: Effort & Inspection: normal respiratory effort and able to speak in complete sentences Auscultation: clear to auscultation bilaterally Cardio: Jugular venous distension: no JVD Heart sounds: S1 normal heart sound present and S2 normal heart sound present GI: Inspection: Yes normal to inspection and No abdominal wall ecchymosis Palpation (GI): Soft to palpation, not firm, nontender, no guarding and not rigid : Other: Pelvic exam positive for bleeding, but negative for any hemorrhaging or profuse bleeding. Negative for profuse blood clots. Negative for any vaginal lesions. General: No CVA tenderness and Yes no CVA tenderness Back/Spine/Pelvis: Back: no CVA tenderness, No CVA tenderness and No back tenderness Skin: General skin exam: no rashes or lesions noted and elasticity normal Neuro: General: patient oriented x3, gait normal, no meningeal signs and CN's II-XI intact bilaterally Cranial nerves: Yes CN's II-XII intact bilaterally Extrem: General: Yes normal to inspection and Yes full ROM Psych: Appearance: grossly normal, well kempt and not disheveled Course Course Course Narrative: Patient had a rapid medical screening. Will evaluate lab results. Reevaluation(s) Reevaluation #1: Patient is hemodynamically stable. Patient labs baseline are at baseline. Vital signs are stable. Urine shows UTI. Pelvic ultrasound still shows fibroid. Case was discussed with Dr. Lopez who states patient could be discharged. Patient is not . Patient informed to call Dr. Lpoez the office for follow-up. Time: 23:16 Medical Decision Making MDM Narrative Medical decision making narrative: Abnormal vaginal bleeding. Lab Data Result diagrams: 11/08/20 20:13 11/08/20 20:13 Labs: Lab Results 11/08/20 11/08/20 11/08/20 Range/Units 16:31 20:13 20:13 WBC 11.1 H (4.8-10.8) X10*3/uL RBC 4.81 (4.20-5.50) X10*6/uL Hgb 11.9 L (12.0-16.0) g/dl Hct 37.1 (37-47) % MCV 77.1 L (80-98) fL MCH 24.7 L (27.0-33.0) pg MCHC 32.1 (31.0-35.0) g/dl RDW 17.2 H (11.0-16.0) % Plt Count 327 (160-400) X10*3/uL MPV 10.3 (9.4-12.3) fL Immature Gran % (Auto) 0.4 (0.0-0.4) % Neut % (Auto) 67.8 (45-73) % Lymph % (Auto) 20.6 (20-40) % [place] % (Auto) 8.4 (2-11) % Eos % (Auto) 2.4 (0-4) % Baso % (Auto) 0.4 (0-2) % Lymph # (Auto) 2.3 (1.2-4.9) X10*3/uL [place] # (Auto) 0.9 (0.1-1.2) X10*3/uL Eos # (Auto) 0.3 (0.0-0.4) X10*3/uL Baso # (Auto) 0.0 (0.0-0.2) X10*3/uL Abs Immat Gran (auto) 0.04 H (0.00-0.03) X10*3/uL Absolute Neuts (auto) 7.5 (2.0-8.3) X10*3/uL Absolute Nucleated RBC 0.000 (0.0-0.012) X10*3/uL Nucleated RBC % (auto) 0.0 (0.0-0.2) /100WBC PT 10.8 (9.9-13.0) SEC INR 1.0 (0.9-1.1) Sodium (135-145) mmol/L Potassium (3.3-5.1) mmol/L Chloride (96-108) mmol/L Carbon Dioxide (22-29) mmol/L Anion Gap (12-20) BUN (9-16) mg/dL Creatinine (0.5-1.4) mg/dL Estim Creat Clear Calc Estimated GFR Random Glucose (60-115) mg/dL Calcium (8.4-10.2) mg/dL Magnesium (1.6-2.6) mg/dL Total Bilirubin (0.0-1.0) mg/dL AST (5-31) U/L ALT (0-31) U/L Alkaline Phosphatase (39-117) U/L Total Protein (6.5-8.0) g/dL Albumin (3.5-5.0) g/dL Beta HCG, Quant mIU/mL Urine Color RED Urine Appearance HAZY Urine pH 5.0 (5.0-8.0) Ur Specific [place] 1.015 (1.005-1.025) Urine Protein 2+ H (NEG-TRACE) MG/DL Urine Glucose (UA) NEG (NEG) MG/DL Urine Ketones 5 (NEG) MG/DL Urine Blood 3+ H (NEG) Urine Nitrite POS H (NEG) Ur Leukocyte Esterase 2+ H (NEG) Urine RBC TNTC H (0) /HPF Urine WBC 5-9 H (0-4) /HPF Ur Squamous Epith Cells TRACE /LPF Urine Bacteria TRACE /LPF 11/08/20 11/08/20 Range/Units 20:13 20:13 WBC (4.8-10.8) X10*3/uL RBC (4.20-5.50) X10*6/uL Hgb (12.0-16.0) g/dl Hct (37-47) % MCV (80-98) fL MCH (27.0-33.0) pg MCHC (31.0-35.0) g/dl RDW (11.0-16.0) % Plt Count (160-400) X10*3/uL MPV (9.4-12.3) fL Immature Gran % (Auto) (0.0-0.4) % Neut % (Auto) (45-73) % Lymph % (Auto) (20-40) % [place] % (Auto) (2-11) % Eos % (Auto) (0-4) % Baso % (Auto) (0-2) % Lymph # (Auto) (1.2-4.9) X10*3/uL [place] # (Auto) (0.1-1.2) X10*3/uL Eos # (Auto) (0.0-0.4) X10*3/uL Baso # (Auto) (0.0-0.2) X10*3/uL Abs Immat Gran (auto) (0.00-0.03) X10*3/uL Absolute Neuts (auto) (2.0-8.3) X10*3/uL Absolute Nucleated RBC (0.0-0.012) X10*3/uL Nucleated RBC % (auto) (0.0-0.2) /100WBC PT (9.9-13.0) SEC INR (0.9-1.1) Sodium 140 (135-145) mmol/L Potassium 3.7 (3.3-5.1) mmol/L Chloride 110 H (96-108) mmol/L Carbon Dioxide 24 (22-29) mmol/L Anion Gap 10 L (12-20) BUN 11 (9-16) mg/dL Creatinine 0.66 (0.5-1.4) mg/dL Estim Creat Clear Calc 107.8 Estimated GFR > 60 Random Glucose 90 (60-115) mg/dL Calcium 8.9 (8.4-10.2) mg/dL Magnesium 2.0 (1.6-2.6) mg/dL Total Bilirubin < 0.2 (0.0-1.0) mg/dL AST 15 (5-31) U/L ALT 15 (0-31) U/L Alkaline Phosphatase 65 (39-117) U/L Total Protein 6.8 (6.5-8.0) g/dL Albumin 4.1 (3.5-5.0) g/dL Beta HCG, Quant < 2 mIU/mL Urine Color Urine Appearance Urine pH (5.0-8.0) Ur Specific [place] (1.005-1.025) Urine Protein (NEG-TRACE) MG/DL Urine Glucose (UA) (NEG) MG/DL Urine Ketones (NEG) MG/DL Urine Blood (NEG) Urine Nitrite (NEG) Ur Leukocyte Esterase (NEG) Urine RBC (0) /HPF Urine WBC (0-4) /HPF Ur Squamous Epith Cells /LPF Urine Bacteria /LPF Discharge Plan Discharge Clinical Impression: Vaginal bleeding, UTI (urinary tract infection) Patient Disposition: Home, Self-Care Instructions: Dysfunctional Uterine Bleeding (ED), Urinary Tract Infection in Men (ED) Additional Instructions: Wilson an?lisis de gray volvi? a la normalidad. Tus signos vitales estaban estables. Wilson orina muestra UTI. La ecograf?a p?lvica todav?a muestra fibromas. Habl? del lj con el Dr. Lopez de OBGYN y ?l le recomend? que le den el jerad y le sarah un seguimiento en wilson consultorio ma?pradeep por la ma?pradeep. regrese al servicio de urgencias inmediatamente si empeora el sangrado vaginal, dolor abdominal, n?useas, v?mitos, fiebre, escalofr?os, dolor en el costado o cualquier otro s?ntoma preocupante. Prescriptions: New cefuroxime axetil 250 mg tablet 250 mg PO Q12H 7 Days Qty: 14 RF: 0 No Action medroxyprogesterone [Provera] 10 mg tablet 10 mg PO DAILY 9 Days Qty: 9 RF: 0 iron DAILY RF: 0 Referrals: Jhony Lopez MD [Physician] - 2 days (Vaginal bleeding pmh of fibroids. Recent myomectomy) Stand Alone Forms: Work/School Release Interventions: ED Discharge Assessment Last Done: 11/08/20 23:54 Discharge Date/Time: 11/08/20 23:54 Print Language: [place]
[2020-11-08 23:37] VITALS: BP 111/64; PULSE 62; RESP 16; TEMP 37.3; O2SAT 99
--- NOTE | 2020-11-08 23:53 | PC.NURSE ---
pt discharged by provider with assist of interpretor.
== END 2020-11-08 23:54 | disposition home or self-care (01) ==
PROVIDERS: Physician Assistant Medical; Emergency Provider Student in an Organized Health Care Education/Training Program; PCP General Practice
DX: N39.0 Urinary tract infection, site not specified (principal); N93.8 Other specified abnormal uterine and vaginal bleeding; Z79.899 Other long term (current) drug therapy
CPT/HCPCS: 36415; 76856; 80053; 81001; 83735; 84702; 85025; 85610; 87086; 99283; 99284

== ENCOUNTER 2020-11-15 12:00 | Outpatient (REF) | payer MEDICAID, OTHER, SELFPAY ==
[2020-11-16 04:48] LABS: CT PCR NOT DETECTED (Not Detect.); NG PCR NOT DETECTED (Not Detect.)
[2020-11-16 08:56] LABS: BV Int Neg Control Negative (Negative); BV Int Pos Control Positive (Positive)
== END 2020-11-15 12:01 | disposition home or self-care (01) ==
LOC: HO.LAB 12:00
PROVIDERS: Visit Provider Obstetrics & Gynecology
DX: N93.9 Abnormal uterine and vaginal bleeding, unspecified (principal); D21.9 Benign neoplasm of connective and other soft tissue, unspecified; N76.0 Acute vaginitis; B96.89 Other specified bacterial agents as the cause of diseases classified elsewhere
CPT/HCPCS: 87480; 87491; 87510; 87591; 87660; 99212